=== PATIENT | male | born 1970 | race Caucasian/White ===

== ENCOUNTER 2020-12-02 15:41 | Emergency (ER) | payer BC, SELFPAY ==
[2020-12-02 15:51] VITALS: BP 151/87; PULSE 80; RESP 16; TEMP 36.2; O2SAT 97
[2020-12-02 17:52] VITALS: BP 131/91; PULSE 72; RESP 16; O2SAT 99
[2020-12-02 17:59] VITALS: BP 131/91; PULSE 83; RESP 18; O2SAT 99
[2020-12-02] MEDS: TETANUS,DIPHTHERIA,AC PERTUSSIS ADULT (0.5 ML) BOOSTRIX IM (18:03)
--- NOTE | 2020-12-02 18:39 | ED.WOUNDLAC ---
HPI - Wound/Laceration General Chief Complaint: Wound/Laceration Stated Complaint: leg laceration Time Seen by Provider: 12/02/20 17:52 Source: patient Mode of arrival: ambulatory Limitations: no limitations History of Present Illness HPI narrative: 50-year-old man Tuesday (2 days ago) he was holding his razor knife and tried to catch his weed Nidhi as it tumbled off a shelf and stabbed himself in the knee He used electrical tape to tape the wound closed in the meantime but comes in now to have the injury addressed There is a little bit of bleeding from it initially but not much currently and that does not appear infected to him Review of Systems Constitutional: Constitutional: Denies chills and Denies fever(s) Musculoskeletal: Musculoskeletal: Denies myalgias and Reports arthralgias Neurologic: Denies focal weakness and Denies numbness Exam Const: General: no acute distress and alert Orientation/consciousness: patient oriented x3 HENMT: Head: normal to inspection Resp: Effort & Inspection: normal respiratory effort and not labored Skin: Other: There is a 3 cm long vertical laceration in the skin overlying the right patellar tendon I irrigated and explored with a cotton swab and that is not really very deep, into the subcu but does not seem to get as deep as the tendon, there is no drainage, there were no foreign bodies identified Neuro: General: patient oriented x3 and moves all extremities Extrem: Other: Laceration as above Course Course Emergency Course: I discussed with the patient that we have 8 to 12 hours to close these lacerations primarily with sutures in the really all we can do now is irrigated thoroughly put a Steri-Strip on it and update his tetanus and prescribed a course of Keflex He should be reexamined by his doctor in 3 days Vital Signs Vital signs: Vital Signs Temperature 36.2 C L 12/02/20 15:51 Pulse Rate 80 12/02/20 15:51 Respiratory Rate 16 12/02/20 15:51 Blood Pressure 151/87 H 12/02/20 15:51 Pulse Oximetry 97 12/02/20 15:51 Temperature 36.2 C L 12/02/20 15:51 Pulse Rate 83 12/02/20 17:59 Respiratory Rate 18 12/02/20 17:59 Blood Pressure 131/91 H 12/02/20 17:59 Pulse Oximetry 99 12/02/20 17:59 Discharge Plan Discharge Clinical Impression: Laceration of knee Patient Disposition: Home, Self-Care Condition: Stable Instructions: Antibiotic Form, Laceration Without Closure (ED) Additional Instructions: Change dressing twice a day Please recheck with your PCP in approximately 3 days Follow-up/Referrals: PHYSICIAN NOT ON STAFF,NONSTAFF [Primary Care Provider] -
[2020-12-02] MEDS: Please add drug allergy info to patient profile. XX (18:48)
[2020-12-02 18:59] VITALS: BP 145/93; PULSE 79; RESP 18; O2SAT 97
== END 2020-12-02 18:58 | disposition home or self-care (01) ==
PROVIDERS: Emergency Provider Emergency Medicine
DX: S81.011A Laceration without foreign body, right knee, initial encounter (principal); Z23 Encounter for immunization; W27.0XXA Contact with workbench tool, initial encounter
CPT/HCPCS: 90471; 90715; 99282; A9270